=== PATIENT | female | born 1980 | race Asian ===

== ENCOUNTER 2018-03-09 18:48 | Emergency (ER) | payer OTHER ==
[~2018-03-09] VITALS: Ht 149.9 cm; Wt 59.0 kg
[2018-03-09 18:48] VITALS: BP 109/72
== END 2018-03-09 20:51 | disposition home or self-care (01) ==
LOC: ER 18:51
DX: J06.9 Acute upper respiratory infection, unspecified (principal); Z98.890 Other specified postprocedural states; Z88.8 Allergy status to other drugs, medicaments and biological substances; Z91.018 Allergy to other foods
CPT/HCPCS: 87804 ×2; 87880; 99283; A4606; Z7610; 86403-TC; 87400

== ENCOUNTER 2018-03-12 21:21 | Emergency (ER) | payer OTHER ==
[~2018-03-12] VITALS: Ht 149.9 cm; Wt 59.0 kg
[2018-03-12 21:25] VITALS: BP 116/78
== END 2018-03-12 22:39 | disposition home or self-care (01) ==
LOC: ER 21:22
DX: S93.691D Other sprain of right foot, subsequent encounter (principal); J45.909 Unspecified asthma, uncomplicated; Z88.8 Allergy status to other drugs, medicaments and biological substances; Z91.018 Allergy to other foods; X58.XXXD Exposure to other specified factors, subsequent encounter
CPT/HCPCS: A4606; Z7502; Z7610